=== PATIENT | female | born 1975 | race Caucasian/White ===

== ENCOUNTER 2019-09-17 13:05 | Emergency (ER) | payer OTHER ==
[~2019-09-17] VITALS: Ht 167.6 cm; Wt 86.2 kg
[2019-09-17] MEDS ORDERED: ORPHENADRINE CITRATE 60 MG/2 ML VIAL. IM ONE (14:00)
[2019-09-17] MEDS ORDERED: KETOROLAC 60 MG/2 ML VIAL. IM ONE (14:00)
[2019-09-17] MEDS ORDERED: CYCL10TA2 PO (14:24)
[2019-09-17] MEDS ORDERED: NAPR-514 PO (14:24)
--- NOTE | 2019-09-17 14:24 | PHYS DOC ---
Past Medical History Past Medical History: No Pertinent History Past Surgical History: Alcohol Use: None Drug Use: Marijuana Adult General Chief Complaint Chief Complaint: BACK PAIN - NO INJURY HPI HPI Patient is a 43 year old female who presents to the emergency department with complaints of right low back pain that radiates into her right leg. Patient states that the pain increases when she lifts her right leg. She denies any saddle anesthesia or loss of bowel/bladder control. She states that she has chronic problems with her low back she denies any injury. Patient denies any numbness, tingling, weakness, dysuria, increased urinary frequency, hematuria, nausea, vomiting, diarrhea, abdominal pain, chest pain, shortness of breath, wheezing, or fever. Patient currently rates her pain 8 out of 10 on the pain scale there are no alleviating factors, the pain increases with movement and ambulation. All other ROS is neg unless otherwise noted in HPI. Review of Systems Review of Systems See Above Current Medications Current Medications Current Medications Medications (Trade) Dose Ordered Sig/[place] Start Time Stop Time Status Last Admin Dose Admin Ketorolac Tromethamine (Toradol Im) 30 mg 1X ONCE 09/17/19 14:00 09/17/19 14:03 DC 09/17/19 14:07 30 MG Orphenadrine Citrate (Norflex) 60 mg 1X ONCE 09/17/19 14:00 09/17/19 14:03 DC 09/17/19 14:10 60 MG Allergies Allergies Allergies Coded Allergies Type Severity Reaction Last Updated Verified No Known Drug Allergies 09/17/19 No Physical Exam Physical Exam See Above Constitutional: Well developed, well nourished, no acute distress, non-toxic appearance. [] HENT: Normocephalic, atraumatic, bilateral external ears normal, nose normal. [] Eyes: PERRLA, EOMI, conjunctiva normal, no discharge. [] Neck: Normal range of motion, no stridor. [] Cardiovascular:Heart rate regular rhythm Lungs & Thorax: Respirations even and unlabored, no retractions, no respiratory distress Skin: Warm, dry, no erythema, no rash. [] Back: Right lumbar paraspinal TTP, no bony tenderness, no CVA tenderness. [] Extremities: No cyanosis, no clubbing, ROM intact, no edema. [] Neurologic: Alert and oriented X 3, no focal deficits noted. [] Psychologic: Affect normal, judgement normal, mood normal. [] Current Patient Data Vital Signs Vital Signs Date Time Temp Pulse Resp B/P (MAP) Pulse Ox O2 Delivery O2 Flow Rate FiO2 09/17/19 14:36 80 16 114/72 (86) 100 Room Air 09/17/19 13:30 97.7 97.7 EKG EKG [] Radiology/Procedures Radiology/Procedures [] Course & Med Decision Making Course & Med Decision Making Pertinent Labs and Imaging studies reviewed. (See chart for details) dx: Right low back pain with sciatica Patient was given 60 mg of IM orphenadrine, and 30 mg of IM Toradol. A prescription was written for approximately 9 Flexeril. Patient was encouraged to follow-up with her primary care doctor for further management of her chronic back pain. Return to the ER if symptoms worsen. Patient verbalized an understanding of home care, medications, follow-up, and return to ED instructions and was in agreement with the plan of care. [] Dragon Disclaimer Dragon Disclaimer This electronic medical record was generated, in whole or in part, using a voice recognition dictation system. Departure Departure Impression: Primary Impression: Low back pain Disposition: HOME, SELF-CARE Condition: STABLE Referrals: NO PCP (PCP) Patient Instructions: Back Pain, Adult, [id number], Sciatica, [id number] Scripts Naproxen (NAPROXEN) 500 Mg Tablet 1 TAB PO BID PRN for PAIN for 10 Days, #20 TAB 0 Refills Prov: [employer] 09/17/19 Cyclobenzaprine Hcl (CYCLOBENZAPRINE HCL) 10 Mg Tablet 1 TAB PO TID PRN for PAIN for 10 Days, #30 TAB 0 Refills Prov: [employer] 09/17/19 Problem Qualifiers Primary Impression: Low back pain Chronicity: acute Back pain laterality: right Sciatica presence: with sciatica Sciatica laterality: sciatica of right side Qualified Codes: M54.41 - Lumbago with sciatica, right side [employer] Sep 17, 2019 14:24
[2019-09-17 14:36] VITALS: BP 114/72
== END 2019-09-17 14:36 | disposition home or self-care (01) ==
LOC: ER 13:05
DX: M54.5 Low back pain (principal); M79.604 Pain in right leg
CPT/HCPCS: 96372; 99284; J1885; J2360